=== PATIENT | male | born 1965 | race Caucasian/White ===

== ENCOUNTER 2020-09-14 13:50 | Inpatient (IN) | payer OTHER, SELFPAY ==
--- NOTE | 2020-09-14 14:00 | ECG_ITS ---
Test Reason : STROKE PROTOCOL Blood Pressure : / mmHG Vent. Rate : 061 BPM Atrial Rate : 061 BPM P-R Int : 156 ms QRS Dur : 094 ms QT Int : 398 ms P-R-T Axes : 030 -02 009 degrees QTc Int : 400 ms Normal sinus rhythm Normal ECG No previous ECGs available Referred By: Lina Wong Electronically Signed By:NEVILLE WALLACE MD
--- NOTE | 2020-09-14 14:00 | CT_ITS ---
EXAMINATION: CT HEAD WITHOUT CONTRAST CLINICAL INFORMATION: Stroke. COMPARISON: Brain MRI from 06/17/2014. TECHNIQUE: Contiguous axial imaging was performed from the skull base to vertex without intravenous administration of contrast. This CT examination was performed using dose optimization techniques as appropriate, variously including the following: *Automated exposure control. *Adjustment of mA and/or kV according to patient size (this includes techniques or standardized protocols for targeted exams where dose is matched to indication/reason for exam; i.e. extremities or head). *Use of iterative reconstruction technique. DLP: 865 mGy-cm FINDINGS: There is no evidence of acute intracranial hemorrhage or edematous territorial infarction. Confluent hypoattenuation in the periventricular and deep white matter. Chronic lacunar infarct within the left basal ganglia and thalamus. Chronic lacunar infarct of the right thalamus. No new loss of espino-white matter differentiation. Proportional prominence of the ventricles and sulcal spaces. No evidence for obstructive hydrocephalus. No abnormal mass effect or midline shift. No extra-axial fluid collections. Mild calcific atherosclerotic disease of the intracranial internal carotid arteries. No hyperdense vessel sign. No acute soft tissue or osseous abnormalities. Near complete opacification of the left maxillary sinus. The remaining visualized paranasal sinuses, mastoid air cells, and middle ear cavities remain well aerated. CT/CT head for stroke IMPRESSION: 1. No evidence of acute intracranial hemorrhage or edematous territorial infarction. 2. Chronic extensive underlying white matter disease. Chronic lacunar infarcts of the deep nuclei. As previously noted, the degree and distribution of these changes may indicate an underlying vasculopathy such as CADASIL.
--- NOTE | 2020-09-14 14:06 | ED.NEUROSD ---
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 Admits to multiple CVA/TIAs in the past, reports mild residual right-sided weakness from prior CVAs, however today weakness and speech is worse than baseline. Usually can ambulate without assistive devices, however has been unable to ambulate today. Reports fall with + head trauma secondary to R-sided weakness last night and sx were still persistent today which prompted patient to come in. Denies LOC, numbness, YEPEZ, tingling Onset (ago): hour(s) Time: 09:30 Location: right face, right arm and right leg Quality: weak Related Data Allergies Allergy/AdvReac Type Severity Reaction Status Date / Time No Known Allergies Allergy Verified 09/14/20 14:00 Review of Systems Review of Systems: Constitutional: No Weight loss, No Fever, No Chills, No Fatigue, No Malaise ENT/Mouth: +speech difficulty, +dysarthria Cardiovascular: No Chest Pain, No SOB Respiratory: No Cough, No Dyspnea Skin: No Skin Lesions, No rash Neuro: +right sided weakness, + unable to ambulate Yes all other systems are reviewed and are negative PMFSH Past Medical History Attestation statement: The following information was validated with the patient. 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) CVA (cerebral vascular accident) Social History Social History Alcohol intake: never Smoking Status: Never smoker Use of substances other than those prescribed or required for medical reasons: No Advance Directives: No Advance Directives Information Provided: Yes Physical Exam Vital Signs: Vital Signs: Last Vital Signs Temp 98.3 F 09/14/20 14:08 Pulse 68 09/14/20 14:08 Resp 18 09/14/20 14:08 BP 123/74 09/14/20 14:08 Pulse Ox 96 09/14/20 14:08 Body Mass Index 29.4 Const: General: cooperative and healthy appearing Orientation/consciousness: patient oriented x3 Limitations: no limitations HENMT: Head: Yes normal to inspection Ears: hearing grossly normal bilaterally General nose exam: Normal external nose present Face and sinus: Yes normal facial exam Eyes: General: appearance normal, both eyes and all related structures EOM: EOMs intact bilaterally Neck: Neck: Yes normal visual inspection and Yes no meningeal signs Resp: Effort & Inspection: normal respiratory effort Cardio: Rate: regular rate GI: Inspection: Yes normal to inspection Palpation (GI): Soft to palpation, nontender, no guarding and not rigid Skin: Rashes: no rashes Wounds: no wounds Neuro: General: patient oriented x3, no meningeal signs and Unable to assess gait Cranial nerves: Yes CN's II-XII intact bilaterally Speech: Expressive aphasia present Gait exam (Neuro): Unable to assess gait Motor exam (neuro): Motor abnormalites present (RUE unable to move & RLE with decreased movement) Sensory Exam: Normal double simultaneous stimulation for sensation Extrem: General: Yes normal to inspection MDM - Neuro Symptoms/Deficit MDM Narrative Medical decision making narrative: 55-year-old male with a past medical history of 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 Reports fall with + head trauma secondary to R-sided weakness last night and sx were still persistent today which prompted patient to come in. On exam VSS, NAD, physical exam as above, NIHSS=8. 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 Report no treatment for patient's chronic disease. Due to severe symptoms will admit for further evaluation/PT case management Lab Data Result diagrams: 09/14/20 14:36 09/14/20 14:36 Labs: Lab Results 09/14/20 09/14/20 09/14/20 Range/Units 14:16 14:18 14:36 WBC 4.4 L (4.8-10.8) X10*3/uL RBC 4.35 L (4.60-5.80) X10*6/uL Hgb 13.5 L (14.0-18.0) g/dl Hct 38.2 L (42-52) % MCV 87.8 (80-98) fL MCH 31.0 (27.0-33.0) pg MCHC 35.3 (31.0-36.0) g/dl RDW 11.5 (11.0-16.0) % Plt Count 193 (160-400) X10*3/uL MPV 9.9 (9.4-12.4) fL Immature Gran % (Auto) 0.0 (0.0-0.4) % Neut % (Auto) 68.6 (45-73) % Lymph % (Auto) 20.3 (20-40) % Caroline % (Auto) 9.7 (2-11) % Eos % (Auto) 0.7 (0-4) % Baso % (Auto) 0.7 (0-2) % Lymph # (Auto) 0.9 L (1.2-4.9) X10*3/uL Caroline # (Auto) 0.4 (0.1-1.2) X10*3/uL Eos # (Auto) 0.0 (0.0-0.4) X10*3/uL Baso # (Auto) 0.0 (0.0-0.2) X10*3/uL Abs Immat Gran (auto) 0.00 (0.00-0.03) X10*3/uL Absolute Neuts (auto) 3.1 (2.0-8.3) X10*3/uL Absolute Nucleated RBC 0.000 (0.0-0.012) X10*3/uL Nucleated RBC % (auto) 0.0 (0.0-0.2) /100WBC PT (10.8-13.0) SEC Whole Blood PT 12.7 (11.1-13.5) sec INR (0.9-1.1) Whole Blood INR 1.1 (0.9-1.1) APTT (24.1-38.0) SEC Sodium (135-145) mmol/L Potassium (3.3-5.1) mmol/l Chloride (96-108) mmol/L Carbon Dioxide (22-29) mmol/L Anion Gap (12-20) BUN (9-16) mg/dL Creatinine (0.5-1.4) mg/dL Estim Creat Clear Calc Estimated GFR POC Glucose 101 (60-115) mg/dL Random Glucose (60-115) mg/dL Calcium (8.4-10.2) mg/dL Magnesium (1.6-2.6) mg/dL Total Bilirubin (0.0-1.0) mg/dL Direct Bilirubin (0.0-0.5) mg/dL AST (5-37) U/L ALT (0-40) U/L Alkaline Phosphatase (39-117) U/L Total Protein (6.5-8.0) g/dL Albumin (3.5-5.0) g/dL 09/14/20 09/14/20 09/14/20 Range/Units 14:36 14:36 14:36 WBC (4.8-10.8) X10*3/uL RBC (4.60-5.80) X10*6/uL Hgb (14.0-18.0) g/dl Hct (42-52) % MCV (80-98) fL MCH (27.0-33.0) pg MCHC (31.0-36.0) g/dl RDW (11.0-16.0) % Plt Count (160-400) X10*3/uL MPV (9.4-12.4) fL Immature Gran % (Auto) (0.0-0.4) % Neut % (Auto) (45-73) % Lymph % (Auto) (20-40) % Caroline % (Auto) (2-11) % Eos % (Auto) (0-4) % Baso % (Auto) (0-2) % Lymph # (Auto) (1.2-4.9) X10*3/uL Caroline # (Auto) (0.1-1.2) X10*3/uL Eos # (Auto) (0.0-0.4) X10*3/uL Baso # (Auto) (0.0-0.2) X10*3/uL Abs Immat Gran (auto) (0.00-0.03) X10*3/uL Absolute Neuts (auto) (2.0-8.3) X10*3/uL Absolute Nucleated RBC (0.0-0.012) X10*3/uL Nucleated RBC % (auto) (0.0-0.2) /100WBC PT 12.0 (10.8-13.0) SEC Whole Blood PT (11.1-13.5) sec INR 1.0 (0.9-1.1) Whole Blood INR (0.9-1.1) APTT 33.5 (24.1-38.0) SEC Sodium 138 (135-145) mmol/L Potassium 3.8 (3.3-5.1) mmol/l Chloride 102 (96-108) mmol/L Carbon Dioxide 26 (22-29) mmol/L Anion Gap 14 (12-20) BUN 11 (9-16) mg/dL Creatinine 0.79 (0.5-1.4) mg/dL Estim Creat Clear Calc 121.0 Estimated GFR > 60 POC Glucose (60-115) mg/dL Random Glucose 107 (60-115) mg/dL Calcium 8.1 L (8.4-10.2) mg/dL Magnesium 2.3 Cancelled (1.6-2.6) mg/dL Total Bilirubin 0.4 Cancelled (0.0-1.0) mg/dL Direct Bilirubin 0.2 Cancelled (0.0-0.5) mg/dL AST 18 Cancelled (5-37) U/L ALT 19 Cancelled (0-40) U/L Alkaline Phosphatase 67 Cancelled (39-117) U/L Total Protein 6.5 Cancelled (6.5-8.0) g/dL Albumin 4.3 Cancelled (3.5-5.0) g/dL NIH Stroke Scale Internal: Initial- Upon Arrival Level of Consciousness: Alert Level of Consciousness Questions: Answers both questions correctly Level of Consciousness Commands: Performs both tasks correctly Best Gaze: Normal Visual: No visual loss Facial Palsy: Normal Motor Arm (Right): No movement Motor Arm (Left): No drift Motor Leg (Right): Some effort against gravity Motor Leg (Left): No drift Sensory: Normal Best Language: No aphasia Dysarthia: Mild to moderate dysarthria Extinction and Inattention: No abnormality Discharge Plan Discharge Clinical Impression: Cerebrovascular accident Patient Disposition: Admitted As Inpatient
[2020-09-14 14:08] VITALS: BP 123/74; PULSE 68; RESP 18; TEMP 36.8; O2SAT 96; BMI 29.4
[2020-09-14 14:21] LABS: Prothrombin Time Whole Bld POC 12.7 sec (11.1-13.5); ~PT, ~INR - Anti Coag Clinic 1.1 (0.9-1.1)
[2020-09-14 14:22] LABS: Glucose, Whole Blood 101 mg/dL (60-115)
[2020-09-14 14:44] LABS: MANUAL DIFF FLAG NO
[2020-09-14 14:48] LABS: Basophils Percent Auto 0.7 % (0-2); Eosinophils Percent Auto 0.7 % (0-4); Hematocrit 38.2 % (42-52); Hemoglobin 13.5 g/dl (14.0-18.0); Lymphocytes Absolute Auto 0.9 X10*3/uL (1.2-4.9); Lymphocytes Percent Auto 20.3 % (20-40); Mean Corpuscular HGB Conc 35.3 g/dl (31.0-36.0); Mean Corpuscular Volume 87.8 fL (80-98); Mean Platelet Volume 9.9 fL (9.4-12.4); Monocytes Absolute Auto 0.4 X10*3/uL (0.1-1.2); Monocytes Percent Auto 9.7 % (2-11); Neutrophils Absolute Auto 3.1 X10*3/uL (2.0-8.3); Neutrophils Percent Auto 68.6 % (45-73); Platelet Count 193 X10*3/uL (160-400); Red Blood Count 4.35 X10*6/uL (4.60-5.80); Red Cell Distribution Width 11.5 % (11.0-16.0); White Blood Count 4.4 X10*3/uL (4.8-10.8)
[2020-09-14 14:59] LABS: Partial Thromboplastin Time 33.5 SEC (24.1-38.0)
[2020-09-14 15:00] LABS: Stroke Lab Use COMPLETE
[2020-09-14 15:17] LABS: Anion Gap 14 (12-20); Blood Urea Nitrogen 11 mg/dL (9-16); Calcium 8.1 mg/dL (8.4-10.2); Carbon Dioxide 26 mmol/L (22-29); Chloride 102 mmol/L (96-108); Estimated Glomerular Filt Rate > 60; Glucose Random 107 mg/dL (60-115); Potassium 3.8 mmol/l (3.3-5.1); Sodium 138 mmol/L (135-145)
--- NOTE | 2020-09-14 15:18 | MHC.STROKE ---
Addendum entered by Estrellita Butler RN 09/15/20 11:50: I MET WITH THE PATIENT SEVERAL TIMES THIS MORNING TO PROVIDE STROKE EDUCATION AND DISCUSS HIS PLAN OF CARE WITH HIM. DR ROSA ALSO ROUNDED. WE DISCUSSED HIS PROGNOSIS AND IT COULD BE 3-4 MONTHS. PT IS RECOMMENDING ACUTE INPATIENT REHAB BUT THE PATIENT EXPLAINED TO ME THAT HE REALLY WANTS TO GO HOME, HE LIVES WITH HIS DAUGHTER AND HE WANTS TO TRY TO COORDINATE VNA, PT, OT, SPEECH AT HOME. I DID COMMUNICATE THIS WITH CASE MANAGEMENT AND DR WELSH. DR. WELSH WILL REACH OUT TO HIS DAUGHTER JAI. THE PLAN IS FOR DISCHARGE TODAY. Original Note: 1350 ARRIVED VIA CAR, BROUGHT IN BY DAUGHTER JAI. C/O RIGHT SIDED HEMIPARESIS ONSET 09/13/20 AT 2100 AT WHICH TIME HE HAD A FALL. HE DID NOT WANT TO COME TO THE HOSPITAL. THIS MORNING IS RIGHT HEMIPARESIS WAS NOT IMPROVED, THEY CALLED HIS DOCTOR AND WAS TOLD TO COME TO THE ED. STAT CT HEAD DONE. I IMMEDIATELY NOTIFIED DR GA, HE JUST SAW HIM IN THE OFFICE ON 09/12/20 HE SEES HIM SINCE HIS PRIOR STROKE 16 YEARS AGO WHEN HE WAS 40, , HX OF CADASIL, SEIZURES, POSITIVE FAMILY HX OF CADASIL, MOTHER AND BROTHER. DR. GA SUGGESTED TO CANCEL THE CTA H/N BECAUSE THE CAUSE OF THE STROKE IS KNOWN. HE IS A DNR AND HAS THE PAPERWORK AT HOME. THE DAUGHTER MENTIONED THAT HE IS DEPRESSED BUT NO ON ANY ANTIDEPRESSANT. HE PASSED HIS SWALLOW SCREEN BUT HE DOES HAVE DIFFICULTY WORD-FINDING APHASIA/DYSARTHRIA AND COULD BENEFIT FROM A SPEECH CONSULTATION TO HELP WITH THIS. I DID EXPLAIN THE PLAN OF CARE, AND INITIATED STROKE EDUCATION. I ALSO UPDATED THE DAUGHTER JAI AND ANSWERED ALL OF THEIR QUESTIONS. I PROVIDED THE ED ERICA REYES WITH THE OFFICE NOTES FROM 09/12/[address] GA'S OFFICE.
[2020-09-14 15:20] LABS: Alanine Aminotransferase 19 U/L (0-40); Albumin Level 4.3 g/dL (3.5-5.0); Alkaline Phosphatase 67 U/L (39-117); Aspartate Amino Transferase 18 U/L (5-37); Bilirubin Direct 0.2 mg/dL (0.0-0.5); Bilirubin Total 0.4 mg/dL (0.0-1.0); Magnesium 2.3 mg/dL (1.6-2.6); Total Protein 6.5 g/dL (6.5-8.0)
[2020-09-14 15:45] VITALS: BP 118/76; PULSE 60; RESP 18; TEMP 36.9; O2SAT 96
--- NOTE | 2020-09-14 17:11 | HP_ITS ---
DATE OF SERVICE: 09/14/2020 CHIEF COMPLAINT: Right-sided weakness. HISTORY OF PRESENTING ILLNESS: This is a 55-year-old gentleman with past medical history significant for CADASIL disease with prior history of stroke, seizure disorder, and recurrent stroke. The patient is being followed by Dr. Solano as an outpatient and was seen at his office 2 days ago. The patient last night at 9:30 p.m. fell down due to right-sided weakness and he hit the right side of his head with no loss of consciousness. No acute trauma to the right face. The patient has history of recurrent falls at home and chronic right-sided weakness. Therefore, he felt that he will be fine, therefore waited until this morning. Since his right-sided weakness persisted, he was dragging his feet. Therefore, daughter brought him to the hospital. In the emergency room, the patient was noted to have right-sided hemiparesis and expressive aphasia. A CAT scan of the head showed no acute infarction, it showed chronic extensive underlying white matter disease, chronic lacunar infarction of the deep nuclei as previously noted. The patient in the emergency room did not require any further treatment since he already had his aspirin. His electrolytes and CBC are stable. The patient's blood sugar as well as blood pressure are also within normal range. The patient has chronic dizziness. He denies any headache, any worsening of his dizzy spell. He denies any recent seizures. He is now being admitted to [facility] due to worsening right-sided weakness and speech impairment. MEDICAL HISTORY: Significant for: 1. CADASIL with prior strokes. 2. History of seizure at a younger age. Currently, not on any antiepileptic medications. No history of diabetes, no history of hypertension, no history of hyperlipidemia. FAMILY HISTORY: The patient's mother had CADASIL. Her brother recently diagnosed at age 59 to have CADASIL disease. SOCIAL HISTORY: The patient denies history of tobacco use. No history of smoking. No history of alcohol abuse or illicit drug use. The patient lives at home with his daughter and does not need any assisted device for ambulation. ALLERGIES: THE PATIENT HAS NO KNOWN DRUG ALLERGIES. HOME MEDICATIONS: The patient takes aspirin 1 tablet a day, otherwise not on any prescription medications. 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 He has history of chronic dizziness with no worsening symptoms. CVS: He denies any chest pain or palpitation. RESPIRATORY: He denies any cough or sputum production. GASTROINTESTINAL: The patient denies any nausea, vomiting, or abdominal discomfort. : He has no urinary symptoms of urgency and frequency. All other systems are reviewed and are negative. PHYSICAL EXAMINATION: GENERAL: The patient is resting comfortably, does not appear to be in acute distress. NECK: Supple. No JVD. LUNGS: Clear to auscultation bilaterally without wheeze or rhonchi. ABDOMEN: Soft, nontender. Bowel sounds are audible. EXTREMITIES: Without edema. SKIN: Without any rashes. NEURO: The patient has word-finding difficulty and expressive aphasia. MOTOR EXAMINATION: The patient had decreased strength in right upper and lower extremities. Left upper extremity and lower extremity strength are normal. Face is symmetrical with no facial droop. Tongue is midline. Gait not assessed. The patient has no tremors. PSYCH: The patient is alert, oriented with normal mood. ASSESSMENT AND PLAN: 1. Acute on chronic recurrent cerebrovascular accident due to prior history of CADASIL. The patient will be continued on aspirin. We will obtain a speech therapy, occupational therapy, and physical therapy evaluation. We will obtain neuro consultation. The patient's blood pressure and blood sugar are within normal range. We will check lipid profile. The patient is a nonsmoker. No history of alcohol. Recommended low-fat, low-cholesterol diet. Further imaging studies as per Neuro recommendation since the patient has history of chronic recurrent cerebrovascular accident. Further imaging will not assist in future management. 2. Deep venous thrombosis prophylaxis. The patient will be placed on Lovenox. Case discussed with the patient and his daughter at bedside and they agree with above treatment plan. MD ANKITA Cardozo/YANNI / [phone]
[2020-09-14 17:31] VITALS: BP 128/62; PULSE 63; RESP 18; TEMP 37; O2SAT 97
[2020-09-14] MEDS: 0.9 % Sodium Chloride Flush 3 ML SYRINGE IVFLUSH ×2 (18:35→19:41)
[2020-09-14] MEDS: Enoxaparin Sodium 40 MG/0.4 ML SYRINGE SUBCUT (19:41)
[2020-09-14 20:00] VITALS: BP 128/62; PULSE 63; RESP 18; TEMP 37; O2SAT 97
[2020-09-15 00:13] VITALS: BP 118/60; PULSE 58; RESP 17; O2SAT 96
[2020-09-15] MEDS: Melatonin 3 MG TABLET 6 MG PO (00:42)
[2020-09-15 04:00] VITALS: BP 120/70; PULSE 85; RESP 16; O2SAT 97
[2020-09-15 05:33] LABS: Cholesterol 136 mg/dL; HDL Cholesterol 40 mg/dL; LDL Cholesterol Calculated 60 mg/dl; Triglycerides 180 mg/dL
[2020-09-15 08:00] VITALS: BP 118/75; PULSE 58; RESP 18; TEMP 36.6; O2SAT 96
[2020-09-15 08:54] VITALS: BP 118/75; PULSE 58; O2SAT 96
[2020-09-15] MEDS: Aspirin Enteric Coated 81 MG TABLET.DR PO (09:09)
[2020-09-15] MEDS: 0.9 % Sodium Chloride Flush 3 ML SYRINGE IVFLUSH (09:09)
--- NOTE | 2020-09-15 09:47 | MHC.CM.PN ---
CM met with Patient who originally stated that he wanted to go home with a new referral to NA. PT has evaluated Patient and is recommending Acute Rehab and Patient has requested a referral be made to [facility]. CM has initiated and will follow for dc planning. 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 Patient's Father/Triston is his HCP and Dr. Kim Richey is the PCP.
[2020-09-15 11:03] VITALS: BP 118/75; PULSE 58; O2SAT 96
[2020-09-15 11:39] VITALS: BP 134/68; PULSE 73; RESP 20; TEMP 36.3; O2SAT 94
--- NOTE | 2020-09-15 12:47 | P.DS_ITS ---
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 The patient is being followed by Dr. Solano as an outpatient and was seen at his office 2 days ago. The patient last night at 9:30 p.m. fell down due to right-sided weakness and he hit the right side of his head with no loss of consciousness. No acute trauma to the right face. The patient has history of recurrent falls at home and chronic right-sided weakness. Therefore, he felt that he will be fine, therefore waited until this morning. Since his right- sided weakness persisted, he was dragging his feet. Therefore, daughter brought him to the hospital. In the emergency room, the patient was noted to have right-sided hemiparesis and expressive aphasia. A CAT scan of the head showed no acute infarction, it showed chronic extensive underlying white matter disease, chronic lacunar infarction of the deep nuclei as previously noted.The patient in the emergency room did not require any further treatment since he already had his aspirin. His electrolytes and CBC are stable. The patient's blood sugar as well as blood pressure are also within normal range.The patient has chronic dizziness. He denies any headache, any worsening ofhis dizzy spell. He denies any recent seizures. He is now being admitted to [facility] due to worsening right-sided weakness and speech impairment. hospital course Acute on chronic recurrent CVA with history of CADASIL patient with persistent right-sided weakness and expressive aphasia CT brain showed no acute lesion case discussed with Neurology due to known diagnosis of CADASIL and no treatment available therefore no further imaging studies were recommended patient has been continued on aspirin,lipid profile showed an LDL of 60 with a total cholesterol of 136 patient is a nonsmoker no history of alcohol abuse he has been recommended to follow low-cholesterol diet patient was evaluated by physical therapy, occupational therapy, and speech therapy, and was recommended acute rehab but patient is adamant that he wishes to be discharged home case discussed with patient's daughter whom he lives with Domitila Salter she agrees with father's decision and wishes to take him home therefore patient is being discharged with [facility] services. Time Spent with Patient Time attestation: Total time spent providing and/or coordinating discharge services: Quality: Stroke Pt Provided Written Stroke Discharge Instructions: Patient given written information Physical Exam Vital Signs: Vital Signs: Last Vital Signs Temp 97.4 F 09/15/20 11:39 Pulse 73 09/15/20 11:39 Resp 20 09/15/20 11:39 BP 134/68 09/15/20 11:39 Pulse Ox 94 09/15/20 11:39 Body Mass Index 30.0 General patient resting comfortably in no acute distress. Neck supple no JVD. CVS regular rate rhythm, Respiratory lungs clear to auscultation, no respiratory distress Gastrointestinal abdomen soft, nontender, bowel sounds audible Neuro patient with persistent expressive aphasia and right hemiparesis. extremities no edema DS: Data Data Completed and Pending Labs on day of discharge: 09/14/20 14:00 ECG 12 lead EKG Stat EKG Documentation DIRECTED CT head for stroke Stat 09/14/20 14:16 Prothrombin Time Whole Bld POC Routine ~PT, ~INR - Anti [facility]ag Clinic Routine 09/14/20 14:18 Glucose, Whole Blood Routine 09/14/20 14:36 Basic Metabolic Panel Stat Complete Blood Count Auto Diff Stat Liver Panel Stat Magnesium Stat Partial Thromboplastin Time Stat Prothrombin Time INR Stat Stroke Lab Use Stat 09/14/20 15:34 Transfer Order Routine 09/14/20 18:05 Cont. Telemetry w/Vital Sign limit Q4HR 09/15/20 04:40 Lipid Panel Routine Laboratory Last Values WBC 4.4 X10*3/uL (4.8-10.8) L 09/14/20 14:36 RBC 4.35 X10*6/uL (4.60-5.80) L 09/14/20 14:36 Hgb 13.5 g/dl (14.0-18.0) L 09/14/20 14:36 Hct 38.2 % (42-52) L 09/14/20 14:36 MCV 87.8 fL (80-98) 09/14/20 14:36 MCH 31.0 pg (27.0-33.0) 09/14/20 14:36 MCHC 35.3 g/dl (31.0-36.0) 09/14/20 14:36 RDW 11.5 % (11.0-16.0) 09/14/20 14:36 Plt Count 193 X10*3/uL (160-400) 09/14/20 14:36 MPV 9.9 fL (9.4-12.4) 09/14/20 14:36 Immature Gran % (Auto) 0.0 % (0.0-0.4) 09/14/20 14:36 Neut % (Auto) 68.6 % (45-73) 09/14/20 14:36 Lymph % (Auto) 20.3 % (20-40) 09/14/20 14:36 [place] % (Auto) 9.7 % (2-11) 09/14/20 14:36 Eos % (Auto) 0.7 % (0-4) 09/14/20 14:36 Baso % (Auto) 0.7 % (0-2) 09/14/20 14:36 Lymph # (Auto) 0.9 X10*3/uL (1.2-4.9) L 09/14/20 14:36 [place] # (Auto) 0.4 X10*3/uL (0.1-1.2) 09/14/20 14:36 Eos # (Auto) 0.0 X10*3/uL (0.0-0.4) 09/14/20 14:36 Baso # (Auto) 0.0 X10*3/uL (0.0-0.2) 09/14/20 14:36 Abs Immat Gran (auto) 0.00 X10*3/uL (0.00-0.03) 09/14/20 14:36 Absolute Neuts (auto) 3.1 X10*3/uL (2.0-8.3) 09/14/20 14:36 Absolute Nucleated RBC 0.000 X10*3/uL (0.0-0.012) 09/14/20 14:36 Nucleated RBC % (auto) 0.0 /100WBC (0.0-0.2) 09/14/20 14:36 PT 12.0 SEC (10.8-13.0) 09/14/20 14:36 Whole Blood PT 12.7 sec (11.1-13.5) 09/14/20 14:16 INR 1.0 (0.9-1.1) 09/14/20 14:36 Whole Blood INR 1.1 (0.9-1.1) 09/14/20 14:16 APTT 33.5 SEC (24.1-38.0) 09/14/20 14:36 Sodium 138 mmol/L (135-145) 09/14/20 14:36 Potassium 3.8 mmol/l (3.3-5.1) 09/14/20 14:36 Chloride 102 mmol/L (96-108) 09/14/20 14:36 Carbon Dioxide 26 mmol/L (22-29) 09/14/20 14:36 Anion Gap 14 (12-20) 09/14/20 14:36 BUN 11 mg/dL (9-16) 09/14/20 14:36 Creatinine 0.79 mg/dL (0.5-1.4) 09/14/20 14:36 Estim Creat Clear Calc 121.0 09/14/20 14:36 Estimated GFR > 60 09/14/20 14:36 POC Glucose 101 mg/dL (60-115) 09/14/20 14:18 Random Glucose 107 mg/dL (60-115) 09/14/20 14:36 Calcium 8.1 mg/dL (8.4-10.2) L 09/14/20 14:36 Magnesium 2.3 mg/dL (1.6-2.6) 09/14/20 14:36 Magnesium Cancelled 09/14/20 14:36 Total Bilirubin 0.4 mg/dL (0.0-1.0) 09/14/20 14:36 Total Bilirubin Cancelled 09/14/20 14:36 Direct Bilirubin 0.2 mg/dL (0.0-0.5) 09/14/20 14:36 Direct Bilirubin Cancelled 09/14/20 14:36 AST 18 U/L (5-37) 09/14/20 14:36 AST Cancelled 09/14/20 14:36 ALT 19 U/L (0-40) 09/14/20 14:36 ALT Cancelled 09/14/20 14:36 Alkaline Phosphatase 67 U/L (39-117) 09/14/20 14:36 Alkaline Phosphatase Cancelled 09/14/20 14:36 Total Protein 6.5 g/dL (6.5-8.0) 09/14/20 14:36 Total Protein Cancelled 09/14/20 14:36 Albumin 4.3 g/dL (3.5-5.0) 09/14/20 14:36 Albumin Cancelled 09/14/20 14:36 Triglycerides 180 mg/dL 09/15/20 04:40 Cholesterol 136 mg/dL 09/15/20 04:40 LDL Cholesterol, Calc 60 mg/dl 09/15/20 04:40 HDL Cholesterol 40 mg/dL 09/15/20 04:40 Discharge Plan Discharge Patient Disposition: Home Health Service Referrals: [facility] [Outside] Kim Richey MD [Primary Care Provider] - Discharge Medications: New aspirin 81 mg Tablet,Delayed Release (Dr/Ec) 81 mg PO DAILY Qty: 30 RF: 0 Discharge Orders: Discharge Order (Routine); Ordered 09/15/20 Ordered By: Candelaria Zuñiga Diet: low fat, low cholesterol Activity on Discharge: As tolerated Visit Report Forms: Patient Portal Discharge page Care Plan Goals: continued outpatient physical therapy, occupational therapy and speech therapy. Health Concerns: as per plan Plan of Treatment: continued outpatient follow-up with primary care physician and Neurology
--- NOTE | 2020-09-15 12:50 | MHC.CM.PN ---
Patient has been medically cleared for dc to home today with [facility].A referral has been made to [facility] and they have been notified of today's dc. Patient is aware of and in agreement with the dc plan. He does not want to go to Acute Rehab/[facility].
--- NOTE | 2020-09-15 13:57 | PM.NEUROCN ---
History of Present Illness Data of Consult Primary Care Provider: Kim Richey MD 55 years old man with underlying history of CADASIL. He was admitted last night with new onset of a right hemiparesis and difficulty speaking. He had previous history of seizure disorder many years ago and stroke but overall he has been able to walk around. He was last seen in office couple of weeks ago and at that time there was no concern for acute concern. There was no associated cold or flu-like illness headache double vision nausea or vomiting or dizziness. Review of Systems Review of Systems: No cold or flu-like illness or trauma. 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 If so, by whom?: No Do you feel safe in your current relationship?: No Is there a partner from a previous relationship who is making you feel unsafe now?: No Are you made to feel afraid or neglected: No Advance Directives: No Advance Directives Information Provided: Yes Advance Directives on File: No Do you have thoughts of harming others: None Do you have a plan to hurt others: No Plan Recently lost weight without trying: No service: No Current occupational status: disabled Meds Allergies Allergy/AdvReac Type Severity Reaction Status Date / Time No Known Allergies Allergy Verified 09/14/20 14:00 Physical Exam Vital Signs: Vital Signs: Last Vital Signs Temp 97.4 F 09/15/20 11:39 Pulse 73 09/15/20 11:39 Resp 20 09/15/20 11:39 BP 134/68 09/15/20 11:39 Pulse Ox 94 09/15/20 11:39 Body Mass Index 30.0 He was alert awake with decreased spontaneity and fluency of speech. He was able to name simple objects read simple words but with some paraphasic errors. There was mild right-sided facial weakness. He was unable to raise his arm against gravity. There was minimal movement in right hand. Right leg was also weak. There was no significant special neglect. Results Labs CBC & Chem 7: 09/14/20 14:36 09/14/20 14:36 Labs: Short CBC 09/14/20 Range/Units 14:36 WBC 4.4 L (4.8-10.8) X10*3/uL Hgb 13.5 L (14.0-18.0) g/dl Hct 38.2 L (42-52) % Plt Count 193 (160-400) X10*3/uL BMP 09/14/20 14:36 Sodium 138 Potassium 3.8 Chloride 102 Carbon Dioxide 26 BUN 11 Creatinine 0.79 Calcium 8.1 L Liver Function 09/14/20 09/14/20 Range/Units 14:36 14:36 Total Bilirubin 0.4 Cancelled (0.0-1.0) mg/dL Direct Bilirubin 0.2 Cancelled (0.0-0.5) mg/dL AST 18 Cancelled (5-37) U/L ALT 19 Cancelled (0-40) U/L Alkaline Phosphatase 67 Cancelled (39-117) U/L Albumin 4.3 Cancelled (3.5-5.0) g/dL His MRI of [address] scan done last night were reviewed. Both revealed extensive white matter signal abnormalities that were quite suggestive of underlying diagnosis. It was difficult to say which lesion was recent. He has developed right hemiparesis likely from an acute left hemispheric infarct. Assessment and Plan (1) Cerebral infarction: Status: Acute 55 years old man with underlying chronic CADASIL. Unfortunately he had another left hemispheric infarct causing right hemiparesis and partial aphasia. Unfortunately there was no treatment for this mechanism of stroke. Reassurance and education, Physical and Occupational therapy, and speech therapy are recommended. He wished to that he wanted to go home and do all that as an outpatient and not inpatient. I would respect his wishes and arrange therapies as an outpatient. Otherwise no particular medicine was needed at this time. Procedures Abscess I/D Date of Service: 09/15/20
== END 2020-09-15 14:17 | disposition home health service (06) | DRG 65 ==
LOC: HO.ED 15:30 → HO.IMC 15:53
PROVIDERS: Physician Assistant; Admitting Provider Hospitalist; Emergency Provider Emergency Medicine; Visit Provider Hospitalist
DX: I63.9 Cerebral infarction, unspecified (principal); G81.91 Hemiplegia, unspecified affecting right dominant side; I67.850 Cerebral autosomal dominant arteriopathy with subcortical infarcts and leukoencephalopathy; R29.708 NIHSS score 8; Z86.73 Personal history of transient ischemic attack (TIA), and cerebral infarction without residual deficits; G40.909 Epilepsy, unspecified, not intractable, without status epilepticus; R47.01 Aphasia; R29.6 Repeated falls; Z91.81 History of falling; Z79.82 Long term (current) use of aspirin; Z79.899 Other long term (current) drug therapy
CPT/HCPCS: 36415; 70450; 80048; 80061; 80076; 82947; 83735; 85025; 85610; 85730; 92523; 93005; 97116; 97163; 97167; 99285; J1650

== ENCOUNTER → 2021-12-14 10:53 | Outpatient (BNVA) | payer OTHER, SELFPAY | PROVIDERS: PCP Internal Medicine; Visit Provider Psychiatry & Neurology Neurology | DX: I69.359 Hemiplegia and hemiparesis following cerebral infarction affecting unspecified side (principal) | CPT/HCPCS: 64642; 64643; J0585 ==

== ENCOUNTER → 2022-03-12 11:22 | Outpatient (BNVA) | payer OTHER, SELFPAY | PROVIDERS: PCP Internal Medicine; Visit Provider Psychiatry & Neurology Neurology | DX: I69.351 Hemiplegia and hemiparesis following cerebral infarction affecting right dominant side (principal) | CPT/HCPCS: 64644; J0585 ==

== ENCOUNTER → 2022-06-21 09:59 | Outpatient (BNVA) | payer MEDICARE, SELFPAY | PROVIDERS: PCP Internal Medicine; Visit Provider Psychiatry & Neurology Neurology | DX: I69.359 Hemiplegia and hemiparesis following cerebral infarction affecting unspecified side (principal) | CPT/HCPCS: 64644; J0585 ==

== ENCOUNTER 2023-12-04 12:10 | Outpatient (REF) | payer MEDICARE, SELFPAY ==
[2023-12-04 12:28] LABS: MANUAL DIFF FLAG NO
[2023-12-04 12:37] LABS: Basophils Percent Auto 0.7 % (0-2); Eosinophils Absolute Auto 0.2 X10*3/uL (0.0-0.4); Eosinophils Percent Auto 3.3 % (0-4); Hematocrit 42.9 % (42.0-52.0); Imm Gran Abs Auto 0.01 X10*3/uL (0.00-0.03); Imm Gran Pct Auto 0.2 % (0.0-0.4); Lymphocytes Absolute Auto 1.2 X10*3/uL (1.2-4.9); Lymphocytes Percent Auto 26.2 % (20-40); Mean Corpuscular Hemoglobin 31.3 pg (27.0-33.0); Mean Corpuscular Volume 89.6 fL (80.0-98.0); Mean Platelet Volume 9.9 fL (9.4-12.4); Monocytes Absolute Auto 0.4 X10*3/uL (0.1-1.2); Monocytes Percent Auto 8.6 % (2-11); Neutrophils Absolute Auto 2.8 x10*3/uL (2.0-8.3); Platelet Count 195 X10*3/uL (160-400); Red Blood Count 4.79 X10*6/uL (4.60-5.80); Red Cell Distribution Width 11.4 % (11.0-16.0); White Blood Count 4.5 X10*3/uL (4.8-10.8)
[2023-12-04 13:20] LABS: Carbamazepine Tegretol 6.2 mcg/mL (5.0-12.0)
[2023-12-04 13:21] LABS: Alanine Aminotransferase 28 U/L (0-40); Albumin Level 4.4 g/dL (3.5-5.0); Alkaline Phosphatase 70 U/L (39-117); Anion Gap 12 (12-20); Aspartate Amino Transferase 24 U/L (5-37); Bilirubin Total 0.4 mg/dL (0.0-1.0); Blood Urea Nitrogen 15 mg/dL (9-16); Calcium 9.4 mg/dL (8.4-10.2); Carbon Dioxide 29 mmol/L (22-29); Chloride 105 mmol/L (96-108); Estimated Glomerular Filt Rate > 60; Glucose Random 101 mg/dL (60-115); Potassium 4.3 mmol/L (3.3-5.1); Sodium 142 mmol/L (135-145); Total Protein 7.2 g/dL (6.5-8.0)
[2023-12-07 19:03] LABS: Levetiracetam Keppra 10.3 mcg/mL (6.0-46.0)
== END 2023-12-04 12:11 | disposition home or self-care (01) ==
LOC: HO.LAB 12:10
PROVIDERS: PCP Internal Medicine; Visit Provider Registered Nurse
DX: G40.909 Epilepsy, unspecified, not intractable, without status epilepticus (principal)
CPT/HCPCS: 36415; 80053; 80156; 80177; 85025